=== PATIENT | female | born 1940 | race Caucasian/White ===

== ENCOUNTER 2017-07-01 09:15 | Outpatient (CLI) | payer MEDICARE | END 2017-07-01 09:16 | disposition home or self-care (01) | LOC: BICRAD 09:15 | PROVIDERS: ATTEND Internal Medicine Cardiovascular Disease | DX: I25.119 Atherosclerotic heart disease of native coronary artery with unspecified angina pectoris (principal); R06.2 Wheezing | CPT/HCPCS: 71046 ==

== ENCOUNTER 2017-11-13 12:57 | Outpatient (CLI) | payer MEDICARE | END 2017-11-13 12:58 | disposition home or self-care (01) | LOC: BICMAMMO 12:57 | PROVIDERS: ATTEND Obstetrics & Gynecology | DX: Z12.31 Encounter for screening mammogram for malignant neoplasm of breast (principal); Z80.3 Family history of malignant neoplasm of breast | CPT/HCPCS: 77063; 77067 ==

== ENCOUNTER 2019-11-25 09:31 | Outpatient (CLI) | payer MEDICARE ==
--- NOTE | 2019-11-25 11:14 | BD ---
BONE DENSITOMETRY USING DEXA: Date: 11/25/2019 HISTORY: Postmenopausal screening for osteoporosis. FINDINGS: Lumbar Spine: BMD (g/cm2) L1 1.017 T-Score: 0.2 Z-Score: 2.6 L2 1.085 T-Score: 0.5 Z-Score: 3.1 L3 1.234 T-Score: 1.4 Z-Score: 4.1 L4 1.163 T-Score: 0.9 Z-Score: 3.8 L1-L4 1.129 T-Score: 0.7 Z-Score: 3.4 Femoral Neck: 0.778 T-Score: -0.6 Z-Score: 1.6 Total Femur: 0.985 T-Score: 0.3 Z-Score: 2.4 IMPRESSION: Normal bone mineral density. POS: [facility]
== END 2019-11-25 09:32 | disposition home or self-care (01) ==
LOC: BICMAMMO 09:31
PROVIDERS: ATTEND Family Medicine
DX: M81.6 Localized osteoporosis [Lequesne] (principal)
CPT/HCPCS: 77063; 77067; 77080

== ENCOUNTER 2020-04-17 14:20 | Outpatient (CLI) | payer MEDICARE ==
--- NOTE | 2020-04-17 16:10 | ULT ---
CLINICAL HISTORY: Chronic kidney disease. STUDY: Renal ultrasound and renal artery ultrasound COMPARISON: None. TECHNIQUE: Multiplanar grayscale and color Doppler images were obtained in a renal ultrasound. Spectr al analysis of the Doppler waveforms of the aorta and renal arteries were performed. FINDINGS: Right kidney: Echogenicity: Normal. Masses/cysts: None. Hydronephrosis: Slight prominence the renal pelvis without calyceal dilatation. Calcifications: None. Length: 7.4 cm Left kidney: Echogenicity: Normal. Masses/cysts: None. Hydronephrosis: Slight prominence the renal pelvis without calyceal dilatation. Calcifications: None. Length: 8.1 cm Limited visualization of the urinary bladder is unremarkable. Peak systolic velocity in the aorta: 78 cm/s Peak systolic velocity in the right renal artery: 76 cm/s. Right renal artery to aortic ratio: 1.0 Peak systolic velocity in the left renal artery: 87 cm/s. Left renal artery to aortic ratio: 1.1 IMPRESSION: 1. Unremarkable renal ultrasound 2. No evidence of renal artery stenosis
== END 2020-04-17 14:21 | disposition home or self-care (01) ==
LOC: BICULT 14:20
PROVIDERS: ATTEND Family Medicine
DX: N18.31 Chronic kidney disease, stage 3a (principal)
CPT/HCPCS: 76770; 93975

== ENCOUNTER 2020-10-24 13:54 | Outpatient (CLI) | payer MEDICARE | END 2020-10-24 13:55 | disposition home or self-care (01) | LOC: BICULT 13:54 | PROVIDERS: ATTEND Internal Medicine Nephrology | DX: N18.30 Chronic kidney disease, stage 3 unspecified (principal) | CPT/HCPCS: 76770 ==

== ENCOUNTER 2021-07-23 08:58 | Outpatient (CLI) | payer MEDICARE | END 2021-07-23 08:59 | disposition home or self-care (01) | LOC: BICRAD 08:58 | PROVIDERS: ATTEND Nurse Practitioner Family | DX: M25.551 Pain in right hip (principal); M16.11 Unilateral primary osteoarthritis, right hip; M46.1 Sacroiliitis, not elsewhere classified | CPT/HCPCS: 72202 ==

== ENCOUNTER 2022-03-05 16:02 | Outpatient (CLI) | payer MEDICARE | END 2022-03-05 16:03 | disposition home or self-care (01) | LOC: BICRAD 16:02 | PROVIDERS: ATTEND Internal Medicine Cardiovascular Disease | DX: R06.02 Shortness of breath (principal); J98.4 Other disorders of lung | CPT/HCPCS: 71046 ==

== ENCOUNTER 2022-07-08 12:13 | Outpatient (CLI) | payer MEDICARE ==
[2022-07-08 13:07] LABS: #Eosinphils 0.2 10x3/uL (0.0-0.5); #Monocytes 0.5 10x3/uL (0.0-1.1); %Basophils 0.5 % (0.0-2.0); %Eosinophils 3.2 % (0.0-6.0); %Lymphocytes 25.2 % (18.0-47.0); %Monocytes 8.3 % (0.0-10.0); %Neutrophils 62.5 % (40.0-75.0); Hemoglobin 10.8 g/dL (12.0-15.5); Mean Corpuscular Hemoglobin 30.3 pg (27.0-33.0); Mean Corpuscular Volume 94.4 fl (81.6-98.3); Mean Platelet Volume 10.6 fl (7.4-10.4); Platelet Count 261 10x3/uL (150-450); RBC Distribution Width 13.2 % (11.5-14.5); Red Blood Cell (RBC) Count 3.57 10x6/uL (3.90-5.03); White Blood Cell (WBC) Count 6.5 10x3/uL (3.5-10.5)
[2022-07-08 13:39] LABS: ALT (SGPT) 27 U/L (8-55); AST (SGOT) 29 U/L (5-34); Albumin 4.1 g/dL (3.4-4.8); Alkaline Phosphatase 63 U/L (40-110); Anion Gap 12 mmol/L (10-20); BUN (Urea Nitrogen) 24 mg/dL (9.8-20.1); Bilirubin, Total 0.4 mg/dL (0.2-1.2); Calc. Creatinine Clearance 0 mL/min (70-130); Carbon Dioxide 22 mmol/L (23-31); Chloride 105 mmol/L (98-107); Estimated GFR 39; Globulin 2.5 g/dL (2.4-3.5); Glucose 84 mg/dL (83-110); Potassium 4.2 mmol/L (3.5-5.1); Protein, Total 6.6 g/dL (5.8-8.1); Sodium 135 mmol/L (136-145)
== END 2022-07-08 12:14 | disposition home or self-care (01) ==
LOC: LABBT 12:13
PROVIDERS: ATTEND Internal Medicine Cardiovascular Disease
DX: Z01.812 Encounter for preprocedural laboratory examination (principal); R06.02 Shortness of breath
CPT/HCPCS: 80053; 85025

== ENCOUNTER 2022-07-10 06:15 | Day surgery (SDC) | payer MEDICARE ==
[2022-07-09 09:28] VITALS: BMI 20.2
[2022-07-10] MEDS ORDERED: Heparin 10,000 UNITS/ 10 ML VIAL ONE (06:57)
[2022-07-10] MEDS ORDERED: Adenosine 6 MG/2 ML VIAL ONE (06:57)
[2022-07-10] MEDS ORDERED: Nitroglycerin 100MG/250ML BOT 0 ML ONE (06:58)
[2022-07-10] MEDS ORDERED: Lidocaine 1% (PF) 30 ML VIAL ONE (07:00)
[2022-07-10 07:34] LABS: Cardiac Risk 2.4 (Less than 4.5)
[2022-07-10] MEDS ORDERED: Midazolam HCl 2 mg/2 ml Vial ONE (07:58)
[2022-07-10] MEDS ORDERED: FENTANYL 50 MCG/ML 1 ML VIAL ONE (07:58)
[2022-07-10] MEDS ORDERED: Iopamidol 370 76% 100 ML VIAL ONE (09:41)
== END 2022-07-10 12:38 | disposition home or self-care (01) ==
LOC: CCL 06:15
PROVIDERS: ATTEND Internal Medicine Cardiovascular Disease
PROC: 4A023N7 Measurement of Cardiac Sampling and Pressure, Left Heart, Percutaneous Approach (ICD-10-PCS; principal; 2022-07-10)
PROC: B2111ZZ Fluoroscopy of Multiple Coronary Arteries using Low Osmolar Contrast (ICD-10-PCS; 2022-07-10)
DX: I25.10 Atherosclerotic heart disease of native coronary artery without angina pectoris (principal); I47.1 Supraventricular tachycardia; I65.23 Occlusion and stenosis of bilateral carotid arteries; R00.1 Bradycardia, unspecified; E78.00 Pure hypercholesterolemia, unspecified; J45.909 Unspecified asthma, uncomplicated; K21.9 Gastro-esophageal reflux disease without esophagitis; I73.9 Peripheral vascular disease, unspecified; Z85.038 Personal history of other malignant neoplasm of large intestine; Z79.02 Long term (current) use of antithrombotics/antiplatelets; Z79.82 Long term (current) use of aspirin; Z79.890 Hormone replacement therapy; Z79.899 Other long term (current) drug therapy; Z88.5 Allergy status to narcotic agent; Z88.7 Allergy status to serum and vaccine; Z88.8 Allergy status to other drugs, medicaments and biological substances
CPT/HCPCS: 80061; 93458; 99152; C1769; J0153; J1644; J2001; J2250; J3010; Q9967